=== PATIENT | female | born 2000 | race Caucasian/White ===

== ENCOUNTER 2024-05-15 17:52 | Emergency (ER) | payer OTHER, SELFPAY ==
--- NOTE | ~2024-05-15 | XR_ITS ---
XR chest 2V Ordering provider: Mariia Donis APRN History: 23 years Female with . cough, fever . Comparison: None. FINDINGS: MEDIASTINUM: The cardiac silhouette is not enlarged. LUNGS: No effusions or pneumothorax. Minimal opacification in the left perihilar and lower lobe area which may indicate early pneumonia. Follow-up advised. OTHER: No free air under the diaphragm. IMPRESSION: Left perihilar and lower lobe minimal opacification suggestive of early pneumonia. Follow-up advised. Reviewed, dictated and finalized at location A. IMPRESSION: Left perihilar and lower lobe minimal opacification suggestive of early pneumon ia. Follow-up advised.
--- NOTE | 2024-05-15 17:56 | ED.URI ---
HPI - URI/Sore Throat General Chief Complaint: Upper Respiratory Infection Stated Complaint: CHEST CONGESTION/COUGH/FEVER/HEADACHE Source: patient and RN notes reviewed Mode of arrival: ambulatory Limitations: no limitations History of Present Illness HPI Narrative: Patient is a 23-year-old female who presents to the [facility] with complaints of chest congestion, cough, and fever. Patient also endorses intermittent mild headache and decreased appetite. She states that her symptoms started on Wednesday and continued to worsen. She reports a frequent nonproductive cough. States that she becomes short of breath with exertion. She denies chest pain. States that she had a fever of 102? F prior to arrival. pPatient states that she was around her that was recently diagnosed with pneumonia. Related Data Home Medications Medication Instructions Recorded Confirmed prenat.vits,teresa,[id number] 1 tablet PO DAILY 05/15/24 05/15/24 ubrogepant 100 mg tablet (Ubrelvy) 100 mg PO PRN PRN Headache 05/15/24 05/15/24 Allergies Allergy/AdvReac Type Severity Reaction Status Date / Time No Known Allergies Allergy Verified 05/15/24 18:08 Review of Systems Review of Systems: CONSTITUTIONAL: Reports fever, chills, and sweats. EYES: Denies visual changes, redness, or discharge. ENT: Denies otalgia and sore throat. reports congestion. CARDIOVASCULAR: Denies chest pain, palpitations, or edema. RESPIRATORY: Reports cough and dyspnea. GASTROINTESTINAL: Denies abdominal pain, nausea, vomiting, or diarrhea. GENITOURINARY: Denies dysuria or hematuria. SKIN: Denies rash or itching. MUSCULOSKELETAL: Denies back pain, joint pain, or myalgia. NEUROLOGIC: Reports headache but denies numbness or weakness. Pertinent positives per HPI. PMFSH Comments At the time of my signature, I reviewed and agree with the nursing past medical, surgical, social, and family history. There is no relevant family history pertinent to the patient complaint. Exam Narrative: GENERAL: This is a well-nourished, well-developed patient, in no apparent distress. HEAD: normocephalic, atraumatic. EYES: Sclera clear/white. Vision is grossly intact. EARS: External ears normal. Hearing grossly intact. NOSE: External nose normal with no obvious nasal discharge, nares without redness, no rhinorrhea. THROAT: Mucous membranes moist, posterior pharynx clear. NECK: Neck supple, non-tender without lymphadenopathy, masses or thyromegaly. CARDIOVASCULAR: Regular rate and rhythm without murmurs, gallops, or rubs. RESPIRATORY: Clear to auscultation. Breath sounds equal bilaterally. No wheezes, rales, or rhonchi. GASTROINTESTINAL: Abdomen soft, non-tender, nondistended. Bowel sounds are active. No hepato-splenomegaly, or palpable masses. No guarding. SKIN: warm, intact with no suspicious lesions or rash, good texture and turgor. NEURO: awake, alert, and oriented to person, place and time. There were no obvious focal neurologic abnormalities. Course Course Level of Care: Express Care Visit Vital Signs Vital signs: Vital Signs Temperature 99 F 05/15/24 18:07 Pulse Rate 120 H 05/15/24 18:07 Respiratory Rate 16 05/15/24 18:07 Blood Pressure 116/87 05/15/24 18:07 Pulse Oximetry 99 05/15/24 18:07 Oxygen Delivery Room Air 05/15/24 18:07 Temperature 99 F 05/15/24 18:07 Pulse Rate 120 H 05/15/24 18:07 Respiratory Rate 16 05/15/24 18:07 Blood Pressure 116/87 05/15/24 18:07 Pulse Oximetry 99 05/15/24 18:07 Oxygen Delivery Room Air 05/15/24 18:07 Reviewed MDM - URI/Sore Throat MDM Narrative Medical decision making narrative: Take antibiotic as prescribed. Follow-up with primary care physician. Return to ED immediately with difficulty breathing or shortness of breath. Differential Diagnosis Differential diagnosis: Likely upper respiratory infection, viral infection and other ( COVID, pneumonia, strep) Lab Data Attestation
[2024-05-15 18:07] VITALS: BP 116/87; PULSE 120; RESP 16; TEMP 37.2; O2SAT 99
[2024-05-15 18:34] LABS: EDCOVIDSCREEN Negative (Negative)
[2024-05-15 18:36] LABS: EDSTREPNEGPOS1 Negative (Negative)
== END 2024-05-15 19:21 | disposition home or self-care (01) ==
PROVIDERS: Emergency Provider Nurse Practitioner
DX: J18.1 Lobar pneumonia, unspecified organism (principal); Z20.822 Contact with and (suspected) exposure to COVID-19
CPT/HCPCS: 71046; 87081; 87426; 87880; 99213; G0463